=== PATIENT | female | born 1990 | race Two or more races ===

== ENCOUNTER 2018-10-18 13:38 | Emergency (ER) | payer MEDICAID ==
[~2018-10-18] VITALS: Ht 165.1 cm; Wt 84.1 kg
[2018-10-18 17:19] VITALS: BP 114/83
== END 2018-10-18 17:23 ==
LOC: ED 15:48
DX: J45.41 Moderate persistent asthma with (acute) exacerbation (principal); R06.00 Dyspnea, unspecified; N30.00 Acute cystitis without hematuria
CPT/HCPCS: 36415; 71046; 80053; 81001; 84703; 85025; 87077; 87086; 87186; 94640; 99284; J7512; J7620

== ENCOUNTER 2019-01-19 20:32 | Emergency (ER) | payer MEDICAID ==
[~2019-01-19] VITALS: Ht 167.6 cm; Wt 83.7 kg
--- NOTE | 2019-01-19 21:05 | NUR ---
PT FROM [facility] WITH C/O LOWER ABD PAIN X 3 DAYS, 17 WEEKS AND STATES HX GALLSTONES DX AT 8 WEEKS OF THIS
[2019-01-19 21:56] LABS: BASOPHILS # (AUTO) 0.04 x10^3/uL (0-0.1); BASOPHILS % (AUTO) 1 % (0-1); EOSINOPHILS # (AUTO) 0.43 x10^3/uL (0-0.4); EOSINOPHILS % (AUTO) 6 % (1-7); LYMPHOCYTES # (AUTO) 1.57 x10^3/uL (1-3.4); LYMPHOCYTES % (AUTO) 22 % (22-44); MD NO; MEAN CORPUSCULAR HEMOGLOBIN 28.7 pg (27.0-34.8); MEAN CORPUSCULAR HGB CONC 33.8 g/dL (32.4-35.8); MEAN PLATELET VOLUME 8.7 fL (7.4-10.4); MONOCYTES # (AUTO) 0.35 x10^3/uL (0.2-0.8); MONOCYTES % (AUTO) 5 % (2-9); NEUTROPHILS # (AUTO) 4.74 x10^3/uL (1.8-6.8); NEUTROPHILS % (AUTO) 66 % (42-75); PLATELET COUNT 248 x10^3/uL (130-400); RED BLOOD COUNT 4.14 x10^6/uL (3.82-5.3); RED CELL DISTRIBUTION WIDTH 13.7 % (9.6-15.2)
[2019-01-19 22:07] LABS: ALANINE AMINOTRANSFERASE 29 U/L (12-78); ALBUMIN 2.4 g/dL (3.4-5.0); ANION GAP 7 mmol/L (5-15); CALCIUM 8.5 mg/dL (8.5-10.1); CHLORIDE 110 mmol/L (98-107); CREATININE 0.59 mg/dL (0.55-1.02)
[2019-01-19 22:09] LABS: ALKALINE PHOSPHATASE 70 U/L (45-117); BILIRUBIN,TOTAL 0.4 mg/dL (0.2-1.0); TOTAL PROTEIN 6.6 g/dL (6.4-8.2)
--- NOTE | 2019-01-19 22:42 | NUR ---
US COMPLETE IN NAD AT THIS TIME
[2019-01-19 22:46] VITALS: BP 119/75
[2019-01-19 22:51] LABS: CULTURE INDICATED? YES; MICROSCOPIC INDICATED
== END 2019-01-19 23:30 | disposition home or self-care (01) ==
LOC: ED 23:10
DX: O26.892 Other specified pregnancy related conditions, second trimester (principal); R10.84 Generalized abdominal pain; O99.512 Diseases of the respiratory system complicating pregnancy, second trimester; Z3A.17 17 weeks gestation of pregnancy
CPT/HCPCS: 36415; 76815; 80053; 81001; 83690; 85025; 87086; 99284